=== PATIENT | male | born 1955 | race Caucasian/White ===

== ENCOUNTER 2017-12-16 07:44 | Inpatient (IN) | payer OTHER ==
[~2017-12-16] VITALS: Ht 182.9 cm; Wt 97.5 kg
--- NOTE | 2017-12-16 08:17 | ED UPPER/LOWER EXTREMITY COMPL ---
See Addendum History of Present Illness General Chief Complaint: Lower Extremity Problems Stated Complaint: SIB DR. POWER FOR SURGERY Source: patient, PCP Exam Limitations: no limitations Vital Signs & Intake/Output Vital Signs & Intake/Output Vital Signs Date Time Temp Pulse Resp B/P B/P Pulse O2 O2 Flow FiO2 Mean Ox Delivery Rate 12/16 0748 99.8 73 15 120/73 94 Room Air Room Air Allergies Coded Allergies: Penicillins (UNKNOWN 12/16/17) Triage Note: PT SENT TO ED BY DR. POWER FOR SURGERY OF INFECTED R KNEE. PT HAD FLUID EXTRACTED ON WEDNESDAY AND DR. POWER CALLED PT YESTERDAY TO TELL HIM HIS KNEE IS INFECTED. PT REPORTS PROCEDURE IS SUPPOSED TO BE DONE AT 1300. REPORTS SOME CHILLS, LOW GRADE TEMP 99.8. Triage Nurses Notes Reviewed? yes HPI: Patient was sent in for admission for a septic joint in his right knee. Patient is to go to the operating room around 1:00. Patient states that he has an 8 out of 10 throbbing pain to his right knee. The pain increases with movement however he currently has a knee immobilizer on so that is helping a little bit. Positive fevers and chills. No nausea or vomiting. No headache. No blurry vision. The pain is constant. Past History Travel History Traveled to [place] past 21 day No Medical History Any Pertinent Medical History? none Neurological: NONE EENT: NONE Cardiovascular: NONE Respiratory: NONE Gastrointestinal: NONE Hepatic: NONE Renal: NONE Musculoskeletal: NONE Psychiatric: NONE Endocrine: NONE Blood Disorders: NONE Cancer(s): NONE Surgical History Surgical History: non-contributory Psychosocial History What is your primary language Icelandic Tobacco Use: Never used ETOH Use: denies use Illicit Drug Use: denies illicit drug use Family History Hx Contributory? No Review of Systems Review of Systems Constitutional: Reports: see HPI, chills, fever. EENTM: Reports: no symptoms. Respiratory: Reports: no symptoms. Cardiovascular: Reports: no symptoms. Gastrointestinal/Abdominal: Reports: no symptoms. Genitourinary: Reports: no symptoms. Musculoskeletal: Reports: see HPI, joint pain, joint swelling. Skin: Reports: no symptoms. Neurological/Psychological: Reports: no symptoms. Hematologic/Endocrine: Reports: no symptoms. Immunological: Reports: no symptoms. All Other Systems: Reviewed and Negative Physical Exam Physical Exam General Appearance: well developed/nourished, alert, awake, moderate distress Head: atraumatic Eyes: Bilateral: PERRL, EOMI. Ears, Nose, Throat: normal pharynx, normal ENT inspection, hearing grossly normal Neck: normal inspection, supple, full range of motion Cardiovascular/Respiratory: normal breath sounds, normal peripheral pulses, regular rate/rhythm Back: normal inspection Knee Ligaments Right: IN KNEE IMMOBILIZER Skin: intact, normal color, warm/dry Lymphatic: no anterior cervical geeta Progress Differential Diagnosis: septic arthritis Plan of Care: Orders Procedure Date/time Status Nothing by Mouth 12/16 L Active ED Holding Orders 12/17 851 Active Admit to inpatient 12/17 851 Active Vital Signs 12/17 851 Active Code Status 12/17 851 Active PARTIAL THROMBOPLASTIN TIME 12/17 815 Active PROTHROMBIN TIME 12/16 08 Active COMPREHENSIVE METABOLIC PANEL 12/16 08 Active CBC WITHOUT DIFFERENTIAL 12/16 08 Active EKG 12/16 0816 Active Current Medications Sig/Marilee Start time Last Medication Dose Stop Time Status Admin Morphine Sulfate 4 MG ONCE ONE 12/16 0900 AC (MORPHINE SULFATE) 12/16 0901 Sodium Chloride 1,000 ML ONCE ONE 12/16 0900 AC (Normal Saline 0.9%) 12/16 1539 Diagnostic Imaging: Viewed by Me: Radiology Read. Discussed w/RAD: Radiology Read. Comments: MEDICAL CONSULT HAS BEEN CALLED ID CONSULT HAS BEEN CALLED BY SURGERY Departure Departure Disposition: STILL A PATIENT Condition: Stable Clinical Impression Primary Impression: Septic joint Referrals: Kristian MCLEOD,Chase Louise (PCP/Family) Departure Forms: Customer Survey General Discharge Information Admission Note Spoke With: Elvis Power MD Documentation of Exam: Documentation of any treatments & extenuating circumstances including Concerns Regarding Discharge (functional status, medication knowledge or non-compliance, living conditions, etc.) that warrant an admission rather than observation: [OR FOR WASHOUT AND FURTHER TREATMENT, PT CONSULT,PAIN CONTROL. ABX ]
--- NOTE | 2017-12-16 08:49 | RADIOLOGY REPORT ---
EXAMINATION: XR CHEST CLINICAL INFORMATION: Preoperative. Fever. COMPARISON: None TECHNIQUE: 2 views of the chest were obtained. FINDINGS: The lungs are well-inflated and clear. Trachea is midline in position. No evidence of interstitial disease, focal consolidation, mass, pneumothorax or pleural effusion. The cardiomediastinal silhouette and pulmonary karlo have normal size and contour. Mild levocurvature of the cervicothoracic spine. No suspicious bone lesions. The examined upper abdomen is unremarkable. IMPRESSION: No acute cardiopulmonary findings.
--- NOTE | 2017-12-16 09:00 | Cons- Medical ---
Jessica Richardson MD 12/16/17 0854: General Information and HPI Consulting Request Date of Consult: 12/16/17 Requested By: Elvis Power MD Reason for Consult: Septic arthritis, right knee -needed surgical debridement, washout - need medical clerance for surgery Source of Information: patient Exam Limitations: no limitations History of Present Illness: Patient is a 62-year-old male, was here for Septic arthritis, right knee -needed surgical debridement, washout.We were called to evaluate and provide medical clerance for surgery. Patient is a 62-year-old healthy male with no significant past medical history presented with chief complaints of right-sided knee septic arthritis. 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 On Wednesday the pain got worse and he started having fever with chills, he incresed the amount of tylenol to 2tab BID. He did not go to the doctor.On this Wednesday the pain was intolerable so he called and visited Dr. Townsend. He referred him to [facility]. He did saw Dr. Power who did x-rays of the knee which showed evidence of effusion but evidence of bone fracture and told about possibility of tendon rupture. He advised for MRI of the knee. He also drained the fluid and sent for the culture to r/o infection.Yesterday he got a call from Dr. Power's office that he he does have infection of his knee fluid and needed debridement. He consider Dr. Power so he is scheduled for his knee debridement for today. At present other than the knee pain he denies for any fever, chills, chest pain, nausea, shortness of breath, erythema, rashes. Of note patient was taking [id number] baby aspirin which he stopped 2 days ago. He did have hemorrhoids which are not active at this time. He had episodes of difficulty in the breathing/which was sudden in onset? panic attacks. He was diagnosed as having mild obstructive lung disease in 2001. He denies that any smoking, cocaine and marijuana use. At baseline he walks 3-4 miles on the ground and go up and down the stairs without any difficulty. Personal history -he lives with the family, at baseline he walks 3-4 miles on the ground and go up and down the stairs without any difficulty. He denies that any smoking, cocaine and marijuana use. He does drink a couple of glasses of wine a month. Allergies -penicillin -he does not know which kind of drug reaction he had in the childhood. Medicine - Sa palmetto,multivitamin, baby aspirin 81 mg daily. Surgical history -he did not have any major surgery to in October 2016 he had a skin biopsy which was negative for any malignancy Family history -father had history of skin cancer/melanoma, mother had history of diabetes, coronary artery disease, CABGs and chronic smoking PCP - Allergies/Medications Allergies: Coded Allergies: Penicillins (UNKNOWN 12/16/17) Home Med List: Aspirin (Aspirin*) 81 MG TAB.CHEW 1 TAB PO DAILY HEART HEALTH (Reported) Multiple Vitamin (Multivitamins) 1 EACH TABLET 1 TAB PO DAILY SUPPLEMENT ( Reported) Review of Systems Review of Systems Constitutional: Reports: no symptoms. Musculoskeletal: Reports: joint pain, joint swelling, muscle pain. Past History Travel History Traveled to [place] past 21 day No Medical History Neurological: NONE EENT: NONE Cardiovascular: NONE Respiratory: NONE Gastrointestinal: NONE Hepatic: NONE Renal: NONE Musculoskeletal: NONE Psychiatric: NONE Endocrine: NONE Blood Disorders: NONE Cancer(s): NONE Surgical History Surgical History: none Psychosocial History ETOH Use: denies use Illicit Drug Use: denies illicit drug use Exam & Diagnostic Data Last 24 Hrs of Vital Signs/I&O Vital Signs Date Time Temp Pulse Resp B/P B/P Pulse O2 O2 Flow FiO2 Mean Ox Delivery Rate 12/16 0748 99.8 73 15 120/73 94 Room Air Room Air Intake & Output 12/16 1600 12/16 0800 12/16 0000 Intake Total 0 Output Total 0 Balance 0 Intake, Oral 0 Output, Urine 0 Patient 97.522 kg Weight Weight Reported by Patient Measurement Method Physical Exam General Appearance: well developed/nourished, no apparent distress, alert, awake , comfortable Ears, Nose, Throat: normal pharynx Neck: normal inspection, supple Respiratory: normal breath sounds, chest non-tender, no respiratory distress, quiet respiration, lungs clear Cardiovascular: regular rate/rhythm Peripheral Pulses: 4+ radial (R), 4+ radial (L), 4+ tibialis posterior (R), 4+ tibialis posterior ( L), 4+ dorsalis pedis (R), 4+ dorsalis pedis (L) Extremities: right knee joint swollen, tender, no erythema, swelling is extending to right calf till the posterior part of right ankle Last 24 Hrs of Labs/Brad: Laboratory Tests 12/17/17 0821: Anion Gap 10, Estimated GFR > 60, BUN/Creatinine Ratio 21.1, CBC w Diff NO MAN DIFF REQ, RBC 4.50 L, MCV 78.4 L, MCH 25.3 L, MCHC 32.3 L, RDW 14.2, MPV 8.8 , Gran % 68.5, Lymphocytes % 16.1 L, Monocytes % 13.1 H, Eosinophils % 1.8, Basophils % 0.5, Absolute Granulocytes 5.7, Absolute Lymphocytes 1.3, Absolute Monocytes 1.1 H, Absolute Eosinophils 0.1, Absolute Basophils 0 Assessment/Plan Assessment/Plan Patient is a 62-year-old male, was here for Septic arthritis, right knee -needed surgical debridement, washout.We were called to evaluate and provide medical clerance for surgery. Vital signs -temperature 99.8, pulse rate 70, respiratory rate 15, blood pressure 120/73, SPO2 94% on room air. EKG showed heart rate 71, normal sinus rhythm, NJ interval 144, QTc 422, No any acute ST-T wave changes. Blood workup showed -WBC 11.4, hemoglobin 12.9, hematocrit 39.8, MCV 77.1, platelet count 356, granulocyte 77, monocytes 12.4, eosinophils 0.8, no Annika, PT/INR -15.1/1.38, APTT 31, sodium 141, potassium 4.8, chloride 102, anion gap 11, carbon dioxide 29, glucose 131, calcium 9.3, AST 25, ALT 54, alkaline phosphatase 82, albumin 3.4, BUN 25, creatinine 0.9. Chest x-ray -no acute cardiopulmonary changes Synovitic fluid was growing staph aureus which was sensitive to oxacillin, Augmentin, cefazolin. Assessment and plan - Patient is a 62-year-old healthy male with no significant past medical history presented with chief complaints of right-sided knee septic arthritis, secondary to trauma. Spinal fluid was growing MSSA. currently he denies for any fever, chills, chest pain. He still have right-sided knee pain, 10/10. On examination the right knee is swollen, tender, swelling extending to right-sided calf and heel. All pulses are palpable. He denies for any history of hypertension, hyperlipidemia, diabetes, hypothyroidism, AK, CHF, CVA, history of prior surgery. He does use aspirin which he stopped 2 days ago.He is undergoing intermediate risk, noncardiac surgery. His risk of getting major cardiac event is only 0.4%. Plan * Patient is undergoing intermediate risk noncardiac surgery. His risk of getting major cardiac event is only 0.4%(RCRI - 0.4%).We think he can undergo the surgery, at 0.4% risk of getting cardiac event. * Patient is allergic to penicillin, and he is unaware of kind of reaction he had.He is growing MSSA in the synovitic fluid. We advised to consider vancomycin/ID consult. * Patient was also having swelling in the calf, it seems in continuation with the swelling in knee, but DVT cannot be ruled out. We would advise to consider color doppler if needed. Discussed with Dr Turcios, these are provisional, please wait for final rcms. Problem List: 1. Septic joint Copies To: Kristian MCLEOD,Chase Galvan. Consult Acknowledgment - Thank you for your consult request. Deepak MCLEOD,Dinah 12/16/17 1134: Assessment/Plan Consult Acknowledgment - Thank you for your consult request. Attending MD Review Statement Attending Statement Attending Statement: examined this patient, discuss w/resident/PA/GRAPHICS EDIT TECHNICIAN, agreed w/resident/PA/GRAPHICS EDIT TECHNICIAN, reviewed EMR data (avail), discussed with nursing, reviewed images, amended to note Attending Assessment/Plan: 62-year-old male with no significant past medical history who is admitted under orthopedic service for right knee septic arthritis. 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 About a week ago he sustained some injury during that position. He started taking some Tylenol but the pain got worse. He finally saw Dr. Power 4 days ago who had performed arthrocentesis. He was also prescribed ibuprofen at that time but no antibiotics. Arthrocentesis results show that he is growing staph aureus MSSA in the right knee. Patient is admitted for right septic knee washout. Medical consult was obtained for medical clearance. Patient has no medical history and he does not take any prescription medications. He does take a baby aspirin which she has not taken over the last 2 days. His right knee is swollen and warm. No significant erythema. Right cough is also swollen. Patient is complaining of significant amount of pain and currently he is awaiting an immobilizer. She is otherwise pretty active person. He is able to go couple of flight of stairs without any chest pain or shortness of breath. His RCRI risk scoring is also low which is 0.4% risk of major cardiac events. Vital Signs Date Time Temp Pulse Resp B/P B/P Pulse O2 O2 Flow FiO2 Mean Ox Delivery Rate 12/16 1031 98.1 67 16 129/60 99 Room Air 12/16 0748 99.8 73 15 120/73 94 Room Air Room Air on exam; aox3, nad. cv; s1,s2, rrr resp; clear abd; soft, nt, bs+ ext; + edema right lower ext. right knee is also swollen. Laboratory Tests 12/16 0900 Chemistry Sodium (137 - 145 mmol/L) 141 Potassium (3.5 - 5.1 mmol/L) 4.8 Chloride (98 - 107 mmol/L) 102 Carbon Dioxide (22 - 30 mmol/L) 29 Anion Gap (5 - 16) 11 BUN (9 - 20 mg/dL) 25 H Creatinine (0.7 - 1.2 mg/dL) 0.9 Estimated GFR (>60 ml/min) > 60 BUN/Creatinine Ratio (7 - 25 %) 27.8 H Glucose (65 - 99 mg/dL) 131 H Calcium (8.4 - 10.2 mg/dL) 9.3 Total Bilirubin (0.2 - 1.3 mg/dL) 1.0 AST (17 - 59 U/L) 25 ALT (21 - 72 U/L) 54 Alkaline Phosphatase (< 127 U/L) 82 Total Protein (6.3 - 8.2 g/dL) 6.8 Albumin (3.5 - 5.0 g/dL) 3.4 L Globulin (1.9 - 4.2 gm/dL) 3.4 Albumin/Globulin Ratio (1.1 - 2.2 %) 1.0 L Coagulation PT (9.4 - 12.5 SEC) 15.1 H INR (0.90 - 1.17) 1.38 H APTT (25 - 37 SEC) 31 Hematology CBC w Diff NO MAN DIFF REQ WBC (4.8 - 10.8 /CUMM) 11.4 H RBC (4.70 - 6.10 /CUMM) 5.17 Hgb (14.0 - 18.0 G/DL) 12.9 L Hct (42 - 52 %) 39.8 L MCV (80.0 - 94.0 FL) 77.1 L MCH (27.0 - 31.0 PG) 25.0 L MCHC (33.0 - 37.0 G/DL) 32.5 L RDW (11.5 - 14.5 %) 13.5 Plt Count (130 - 400 /CUMM) 356 MPV (7.4 - 10.4 FL) 8.5 Gran % (42.2 - 75.2 %) 77.0 H Lymphocytes % (20.5 - 51.1 %) 9.0 L Monocytes % (1.7 - 9.3 %) 12.4 H Eosinophils % (0 - 5 %) 0.8 Basophils % (0.0 - 2.0 %) 0.8 Absolute Granulocytes (1.4 - 6.5 /CUMM) 8.8 H Absolute Lymphocytes (1.2 - 3.4 /CUMM) 1.0 L Absolute Monocytes (0.10 - 0.60 /CUMM) 1.4 H Absolute Eosinophils (0.0 - 0.7 /CUMM) 0.1 Absolute Basophils (0.0 - 0.2 /CUMM) 0.1 CXR: IMPRESSION: No acute cardiopulmonary findings. EKG>> NSR, no acute changes. Assessment and recommendations: 62-year-old male with no significant past history who was admitted under orthopedic service for right knee septic arthritis needing washout. Would recommend right lower extremity venous Doppler ultrasound to rule out DVT. Infectious disease has been consulted for the choice of antibiotics. If ultrasound is negative for DVT then patient's RCRI risk scoring index calculates to 0.4% risk of major cardiac events. No further testing needed. Post op mx will be per orthopedic. Thank you will follow.
[2017-12-16 09:16] LABS: ABSOLUTE BASOPHIL COUNT 0.1 /CUMM (0.0-0.2); ABSOLUTE EOSINOPHIL COUNT 0.1 /CUMM (0.0-0.7); ABSOLUTE GRANULOCYTE CT 8.8 /CUMM (1.4-6.5); ABSOLUTE MONOCYTE COUNT 1.4 /CUMM (0.10-0.60); BASOPHIL % 0.8 % (0.0-2.0); EOSINOPHIL % 0.8 % (0-5); HEMATOCRIT 39.8 % (42-52); MEAN CORPUSCULAR HGB CONC 32.5 G/DL (33.0-37.0); MEAN CORPUSCULAR VOLUME 77.1 FL (80.0-94.0); MEAN PLATELET VOLUME 8.5 FL (7.4-10.4); PLATELET COUNT 356 /CUMM (130-400); RBC DISTRIBUTION WIDTH 13.5 % (11.5-14.5); RED BLOOD CELL CT 5.17 /CUMM (4.70-6.10); WHITE BLOOD CELL COUNT 11.4 /CUMM (4.8-10.8)
[2017-12-16 09:36] LABS: PT 15.1 SEC (9.4-12.5); PTT 31 SEC (25-37)
--- NOTE | 2017-12-16 10:25 | History & Physical Pre-Op ---
Onofre,Debbie 12/16/17 1021: General Information and HPI MD Statement: I have seen and personally examined NADIRA ALTAMIRANO and documented this H&P. The patient is a 62 year old M who presented with a patient stated chief complaint of [right knee pain related to septic joint]. Source of Information: patient Exam Limitations: no limitations History of Present Illness: Nadira is a 62 year old male who presents to the ER under the direction of Dr. Power for preoperative evaluation, he will be going to the OR today for an arthroscopic washout of his septic right knee. Mr. Altamirano presented to Dr. Power's office on Wednesday of this week with complaints of pain to his right knee that was preceded by a fall from a kneeling position. Upon evaluation in the office the patient had a painful effusion concerning for a possible hemearthosis. However, a joint aspiration performed in the office by Dr. Power was significant for cloudy fluid. Cultures were sent from the fluid and are positive for a staph aureus infection. A hospitalist consult was obtained as well as an infectious disease consult. Patient has been seen by Dr. Ferrera, upon exam of his calf, Dr. Ferrera expressed concern regarding tenderness and swelling. A stat ultrasound has been ordered to r/o DVT. The patient denies any signficant medical history. He denies any pertinent surgical history, this is a southern ute knee. Allergies/Medications Allergies: Coded Allergies: Penicillins (UNKNOWN 12/16/17) Past History Medical History Neurological: NONE EENT: NONE Cardiovascular: NONE Respiratory: NONE Gastrointestinal: NONE Hepatic: NONE Renal: NONE Musculoskeletal: NONE Psychiatric: NONE Endocrine: NONE Blood Disorders: NONE Cancer(s): NONE Surgical History Pertinent Surgical History: non-contributory Past Family/Social History Psychosocial History ETOH Use: denies use Illicit Drug Use: denies illicit drug use Review of Systems Review of Systems Constitutional: Reports: chills, malaise. EENTM: Reports: no symptoms. Cardiovascular: Reports: no symptoms. Respiratory: Reports: no symptoms. GI: Reports: no symptoms. Genitourinary: Reports: no symptoms. Musculoskeletal: Reports: see HPI, joint pain, joint swelling. Skin: Reports: no symptoms. Neurological/Psychological: Reports: no symptoms. Hematologic/Endocrine: Reports: no symptoms. Immunologic/Allergic: Reports: no symptoms. Exam & Diagnostic Data Last 24 Hrs of Vital Signs/I&O Vital Signs Date Time Temp Pulse Resp B/P B/P Pulse O2 O2 Flow FiO2 Mean Ox Delivery Rate 12/16 1031 98.1 67 16 129/60 99 Room Air 12/16 0748 99.8 73 15 120/73 94 Room Air Room Air Intake & Output 12/16 1600 12/16 0800 12/16 0000 Intake Total 0 Output Total 0 Balance 0 Intake, Oral 0 Output, Urine 0 Patient 215 lb Weight Weight Reported by Patient Measurement Method Physical Exam: General: Alert and oriented x3, no acute distress Cardiac: RRR, s1s2 Pulm: CTA bilaterally Abd: Soft, non-tender, non-distended Extremities: Moves all extremities, neurovascularly intact. Right knee warm, swelling. Right calf tender, tight with palpation. Assessment/Plan Assessment/Plan: This is a 62 year old male, hospital day 0, presenting with a septic knee. Preoperative workup to include routine labs and ekg, all of which have been reviewed. Chest xray, routine, reviewed IV hydration, Normal Saline at 75/hour Hospitalist consult, Dr. Ferrera has seen patient Infectious disease, Dr. Leroy will see patient preoperatively Stat ultrasound or rle to r/o dvt preoperatively Will admit to surgery, Dr. Power Will consider picc line placement and administration of iv antibiotics under the guidance of Elvis Lubin MD 12/16/17 1720: General Information and HPI Allergies/Medications Home Med list Aspirin (Aspirin*) 81 MG TAB.CHEW 1 TAB PO DAILY HEART HEALTH (Reported) Multiple Vitamin (Multivitamins) 1 EACH TABLET 1 TAB PO DAILY SUPPLEMENT ( Reported) Assessment/Plan As Ranked By This Provider Problem List: 1. Septic joint Attending MD Review Statement Attending Statement Attending MD Statement: examined this patient, discuss w/resident/PA/CORE MICROARCHITECT, agreed w/resident/PA/CORE MICROARCHITECT
--- NOTE | 2017-12-16 11:43 | ULTRASOUND REPORT ---
EXAMINATION: US TRIPLEX LOWER EXTREMITY, RIGHT CLINICAL INFORMATION: Right lower extremity pain and swelling. COMPARISON: None TECHNIQUE: Color-flow triplex imaging with spectral analysis and compression Doppler were performed on the lower extremity. FINDINGS: Respiratory variation, normal compression and augmented flow are noted throughout the lower extremity. The visualized common femoral vein, proximal greater saphenous vein, superficial femoral vein, profunda femoral vein, popliteal vein and midcalf peroneal and posterior tibial venous segments show no evidence of deep venous thrombosis. A right popliteal fossa fluid collection, possibly a Peña's cyst, is seen measuring 4.5 x 1.4 x 3.6 cm. IMPRESSION: 1. No ultrasound evidence of deep venous thrombosis involving the right lower extremity. 2. A right popliteal fossa fluid collection is seen, as detailed.
--- NOTE | 2017-12-16 11:52 | Cons- Infect Disease ---
General Information and HPI Consulting Request Date of Consult: 12/16/17 Requested By: Elvis Power M.D. 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 Laboratory data revealed a white blood cell count of 11,000, BUN/creatinine 25 and 0.9, with normal liver enzymes, INR 1.38/ PTT 31. Chest x -ray was negative. At present he reports significant pain in the knee. He has noted chills over the last several days but has had no documented fevers. Allergies/Medications Allergies: Coded Allergies: Penicillins (UNKNOWN 12/16/17) Past History Travel History Traveled to [place] past 21 day No Medical History Neurological: NONE EENT: NONE Cardiovascular: NONE Respiratory: NONE Gastrointestinal: NONE Hepatic: NONE Renal: NONE Musculoskeletal: NONE Psychiatric: NONE Endocrine: NONE Blood Disorders: NONE Cancer(s): NONE Surgical History Surgical History: non-contributory Psychosocial History ETOH Use: denies use Illicit Drug Use: denies illicit drug use Review of Systems Review of Systems All Other Systems: Reviewed and Negative Exam & Diagnostic Data Last 24 Hrs of Vital Signs/I&O Vital Signs Date Time Temp Pulse Resp B/P B/P Pulse O2 O2 Flow FiO2 Mean Ox Delivery Rate 12/16 1031 98.1 67 16 129/60 99 Room Air 12/16 0748 99.8 73 15 120/73 94 Room Air Room Air Intake & Output 12/16 1600 12/16 0800 12/16 0000 Intake Total 0 Output Total 0 Balance 0 Intake, Oral 0 Output, Urine 0 Patient 215 lb Weight Weight Reported by Patient Measurement Method Physical Exam Other Physical Findings: Afebrile. He is awake and alert in no acute distress. Skin reveals no rash. HEENT negative. Neck is supple with no adenopathy. Lungs are clear. Heart regular rhythm with no murmur. Abdomen is soft, nontender with positive bowel sounds. Back no CVA tenderness. Extremities right knee swelling and warmth, with no erythema, tender to palpation with decreased range of motion; right lower extremity edema, with no cyanosis or clubbing. Neuro is without focality. Last 24 Hours of Lab Results: Laboratory Tests 12/16 0900 Chemistry Sodium (137 - 145 mmol/L) 141 Potassium (3.5 - 5.1 mmol/L) 4.8 Chloride (98 - 107 mmol/L) 102 Carbon Dioxide (22 - 30 mmol/L) 29 Anion Gap (5 - 16) 11 BUN (9 - 20 mg/dL) 25 H Creatinine (0.7 - 1.2 mg/dL) 0.9 Estimated GFR (>60 ml/min) > 60 BUN/Creatinine Ratio (7 - 25 %) 27.8 H Glucose (65 - 99 mg/dL) 131 H Calcium (8.4 - 10.2 mg/dL) 9.3 Total Bilirubin (0.2 - 1.3 mg/dL) 1.0 AST (17 - 59 U/L) 25 ALT (21 - 72 U/L) 54 Alkaline Phosphatase (< 127 U/L) 82 Total Protein (6.3 - 8.2 g/dL) 6.8 Albumin (3.5 - 5.0 g/dL) 3.4 L Globulin (1.9 - 4.2 gm/dL) 3.4 Albumin/Globulin Ratio (1.1 - 2.2 %) 1.0 L Coagulation PT (9.4 - 12.5 SEC) 15.1 H INR (0.90 - 1.17) 1.38 H APTT (25 - 37 SEC) 31 Hematology CBC w Diff NO MAN DIFF REQ WBC (4.8 - 10.8 /CUMM) 11.4 H RBC (4.70 - 6.10 /CUMM) 5.17 Hgb (14.0 - 18.0 G/DL) 12.9 L Hct (42 - 52 %) 39.8 L MCV (80.0 - 94.0 FL) 77.1 L MCH (27.0 - 31.0 PG) 25.0 L MCHC (33.0 - 37.0 G/DL) 32.5 L RDW (11.5 - 14.5 %) 13.5 Plt Count (130 - 400 /CUMM) 356 MPV (7.4 - 10.4 FL) 8.5 Gran % (42.2 - 75.2 %) 77.0 H Lymphocytes % (20.5 - 51.1 %) 9.0 L Monocytes % (1.7 - 9.3 %) 12.4 H Eosinophils % (0 - 5 %) 0.8 Basophils % (0.0 - 2.0 %) 0.8 Absolute Granulocytes (1.4 - 6.5 /CUMM) 8.8 H Absolute Lymphocytes (1.2 - 3.4 /CUMM) 1.0 L Absolute Monocytes (0.10 - 0.60 /CUMM) 1.4 H Absolute Eosinophils (0.0 - 0.7 /CUMM) 0.1 Absolute Basophils (0.0 - 0.2 /CUMM) 0.1 Last 24 Hours of Brad Results: Right knee synovial fluid culture December 13 positive for Staph aureus sensitive to Oxacillin Diagnostic Data Recent Imaging Findings: Chest x-ray December 16 negative Assessment/Plan Assessment/Plan Impression: This is a 62-year-old man with no significant past medical history, status post an injury to his right knee 10 days prior to admission while leaning on the knees at work, with the development of increasing pain and swelling of the knee, status post arthrocentesis 3 days prior to admission revealing over 127,000 white blood cells with the gram stain revealing packed white blood cells and rare gram-positive cocci and with the culture positive for Staph aureus, admitted today for arthroscopic drainage of the knee. His clinical picture is consistent with a septic arthritis of the right knee. This is most likely related to the trauma he sustained 10 days prior to admission at work, though one might question if this began as a bursitis ( suprapatellar) with extension into the joint. He is scheduled for arthroscopic drainage of the knee later today. His Penicillin allergy is remote, with no details available, and it would be reasonable to treat him with cephalosporins. Suggestion: 1. Obtain blood cultures 2 2. Await arthroscopic drainage in the OR later today 3. Begin Cefazolin 2 g IV every 8 hours Consult Acknowledgment - Thank you for your consult request.
[2017-12-16] MEDS ORDERED: MULTIVITAMINS1 EAC9 PO (12:49)
[2017-12-16] MEDS ORDERED: ASPIRIN81 M4 PO (12:50)
--- NOTE | 2017-12-16 17:41 | Operative Report ---
Operative/Inv Procedure Report Surgery Date: 12/16/17 Name of Procedure: Arthroscopic washout right knee. Pre-Operative Diagnosis: Right knee septic arthritis. Post-Operative Diagnosis: Same. Estimated Blood Loss: scant Surgeon/Document Clerk: Elvis Power MD Anesthesia: laryngeal mask airway Monitors: EKG/BP/O2Sat IV Fluids: Lactated Ringer's. Implants: None. Urine Output: None. Drains: Medium-size NADER drain 1. Specimens: Synovial fluid sent to the microbiology lab for Gram stain and culture and sensitivity. Microbiology: Synovial fluid sent to the microbiology lab for Gram stain and culture and sensitivity. Tourniquet: 49 minutes at 300 mmHg. Complications: None known. Condition: Stable. Operative Indication: The patient is a 62-year-old male who developed right knee pain and swelling now roughly 10 days ago. He initially believed that the onset of his knee symptoms were related to him having lost his balance while he was kneeling causing him to fall backwards onto his buttocks and then over to his side. He thought that he had hyperflexed the knee. He felt "something" in the region of the distal thigh when this occurred. The patient initially improved but subsequently developed pain and swelling in the knee that evening. He did not recall having experienced any erythema. At the time of his initial office visit with me he denied any history of fevers or chills or other constitutional symptoms. More recently when I did discuss this with him again earlier today he does recall that he did experience one episode of chills on the day that his symptoms began. The patient saw me earlier this week. My impression based upon the patient's related mechanism of injury and onset of symptoms in the knee without any type of constitutional symptoms was that he had potentially sustained a partial tear of the quadriceps tendon. I did recommend given his exceptionally large joint effusion with discomfort seemingly related to the distention of the joint capsule that we aspirate the joint trying to evacuate presumed hematoma should this have been in fact a partial quadriceps disruption. This aspiration was performed under ultrasonographic guidance. A distinct defect in the quadriceps tendon was not identified. A very large joint effusion was identified. This joint effusion was aspirated with return of very thin cloudy not specifically purulent appearing synovial fluid. The fluid had the general appearance of an inflammatory arthritis or crystalline arthropathy. The fluid was sent to the lab for routine analysis thinking that this would be an inflammatory or crystalline arthropathy of the knee. The synovial fluid returned positive for a markedly elevated synovial white blood cell count of nearly 128,000. This was with 95% polys. Gram stain and culture and sensitivity did ultimately start off with gram-positive cocci which proved to be staph aureus. I did contact the patient yesterday to discuss the findings of his synovial fluid analysis and to inform him that this did unexpectedly seem to be a septic arthritis of the knee for reasons that I could not explain. I did indicate to the patient that the indicated treatment would be an arthroscopic washout of the knee followed by IV and possibly oral antibiotics for an extended period of time. We discussed the timing and mechanism for how to accomplish this and after discussion we did decide to admit him to the emergency room this morning so that we could take him to the operating room this early afternoon for an arthroscopic washout of the knee. All of the patient's questions were answered at length. He did wish to move forward with arthroscopic washout of the knee as recommended and surgical consent was obtained. Operative/Procedure Note Note: The patient was brought to the operating room and placed on the operative table in supine position. General anesthesia via LMA was induced by the anesthesia team. We held off on administration of antibiotics until additional synovial fluid could be obtained from the knee to be sent to the microbiology lab for analysis. All bony prominences well-padded. We also applied a well-padded tourniquet to the proximal portion of the right side. We secured the right side to a well padded thigh you attachment to the OR table. The contralateral left lower cavity well leg was supported in a padded leg support. A bump was placed under the right buttocks to help partially internally rotate the right lower extremity. The bed was elevated and the foot was dropped. The right lower extremity was then prepped and draped in the usual sterile fashion. Standard planned anterolateral and anteromedial arthroscopic portals were marked on the skin. The extremity was then exsanguinated and the pneumatic tourniquet was inflated to a pressure of 300 mmHg. A standard anterolateral arthroscopic viewing portal was created and the arthroscope was introduced into the joint. With initial placement of the trocar we did evacuate a large amount of cloudy synovial fluid which this time had a closer appearance to a true purulent fluid within the knee. This fluid was sent to the microbiology lab for Gram stain and culture and sensitivity. Diagnostic arthroscopy of the joint showed a marked septic effusion and marked hypertrophic synovitis throughout the knee. The patellofemoral articulation showed grade 4 cartilage loss along the median ridge and lateral patellar facet. The medial patellar facet showed mild chondral changes. The trochlea was in relatively good condition. No loose bodies within the gutters to either side of the knee but again there was hypertrophic synovitis. The medial tibiofemoral compartment showed grade 1 cartilage changes of the mediofemoral condyle and the medial tibial plateau. The medial meniscus was intact. The intercondylar notch showed significant synovitis over and about the anterior cruciate ligament. After cleaning this up subsequently later in the case the ACL was found to be intact. The lateral tibiofemoral compartment was entered and showed intact lateral meniscus and grade 1 cartilage changes of the lateral femoral condyle and lateral tibial plateau. Of note it took about 5 minutes of simply washing out the knee before visualization of the knee arthroscopically could be performed. Once we had visualization of the knee we performed an arthroscopic lavage and debridement of the knee. An aggressive motorized shaver was used to debride inflamed synovial tissue throughout the knee as best as possible. The shaver was also used to debride retropatellar fat pad. In the end the knee was irrigated with 15 L of saline for the washout. Once we felt that we had achieved a reasonable washout of the knee we placed a medium-sized J-P drain by advancing the trocar for the J-P drain up through the medial arthroscopic portal and directed that up and out through the anterior distal lateral thigh. The trocar was cut off of the suction drain tubing. The drain was cut shorter and positioned under direct visualization arthroscopically down into the intercondylar region of the knee. The knee was further irrigated and then evacuated of as much saline and synovial fluid as possible. The arthroscopic instrumentation was removed. The arthroscopic portal wounds were repaired using 3-0 Prolene placed in interrupted simple fashion. The drain exiting the distal lateral thigh was secured by suturing it with a 0 Prolene suture wrapped around the tubing. The wounds were all washed and dried. Xeroform gauze nonadherent dressing was wrapped around the drain exit site and additional Xeroform gauze dressing was placed over the anteromedial and anterolateral arthroscopic portal wounds. A drain sponge was placed about the drain. The wounds were covered with multiple fluffed gauze dressings followed by abdominal pads. The extremity was then wrapped with Azam bandages from the toes distally ultimately to the upper thigh proximally in order to hold the dressings in place and to provide some postoperative compression to the knee as well as to the right lower extremity in general hopefully to minimize risk of blood clot formation propagation. Once the Azam bandages were wrapped about the knee the tourniquet was deflated. Once the tourniquet was deflated a dose of Ancef was given to start his postoperative antibiotic treatment. The leg of the bed was elevated. The patient's legs were taken down from the well leg you for the left leg and from the thigh you for the right leg and placed in the supine extended position on the bed. Right lower extremity was then placed into a long-leg knee immobilizer secured in place to maintain the knee in full extension. The patient was awakened from general anesthesia. He was transferred to the stretcher and then brought to the recovery room stable condition having tolerated the procedure well. Findings: 1) Marked septic effusion. 2) Marked hypertrophic synovitis. 3) Grade 4 cartilage loss median ridge and lateral patellar facet of patella. 4) Grade 1 cartilage changes elsewhere in the knee. 5) ACL intact. 6) Medial and lateral menisci intact. Discharge Disposition: PACU
--- NOTE | 2017-12-16 17:44 | Admission Core Measures ---
Acute Coronary Syndrome (CM) ACS Core Measures Acute Coronary Syndrome Diagnosis No Congestive Heart Failure (NEW) CHF Core Measures Congestive Heart Failure Diagnosis No Cerebrovascular Accident (NEW) CVA Core Measures CVA/TIA Diagnosis No Venous Thromboembolism VTE Core Rosalba (View Protocol) VTE Risk Factors Surgery No Mechanical VTE Prophylaxis d/t N/A MechProphylax Ordered No VTE Pharm Prophylaxis d/t NA PharmProphylax ordered Problem List As ranked by this Provider includes Assessment & Plan 1. Septic joint HOME MEDS Home Med List Aspirin (Aspirin*) 81 MG TAB.CHEW 1 TAB PO DAILY HEART HEALTH (Reported) Multiple Vitamin (Multivitamins) 1 EACH TABLET 1 TAB PO DAILY SUPPLEMENT ( Reported)
[2017-12-16 19:00] VITALS: BP 150/70
--- NOTE | 2017-12-16 19:41 | PN- Orthopedic ---
See Addendum Subjective Subjective: POST-OP CHECK Pt in bed, very tired. Pain controlled. No Nausea, CP/SOB, RUSHING. denies fevers but said he has had a few chills. Denies paresthias. Objective Vital Signs and I&Os Vital Signs Date Time Temp Pulse Resp B/P B/P Pulse O2 O2 Flow FiO2 Mean Ox Delivery Rate 12/16 1241 98.4 69 16 136/69 100 Room Air 12/16 1031 98.1 67 16 129/60 99 Room Air 12/16 0748 99.8 73 15 120/73 94 Room Air Room Air Intake & Output 12/16 1600 12/16 0800 12/16 0000 12/15 1600 12/15 0800 12/15 0000 Intake Total 0 Output Total 0 Balance 0 Intake, Oral 0 Output, Urine 0 Patient 215 lb Weight Weight Reported by Patient Measurement Method Physical Exam: gen- NAD resp- clear bilaterally cardio- RRR abd- ND, soft, NT ext- right leg wrapped in bob with knee immobilizer on. clean and dry. drain in place which was recently emptied- minimal sanguineous drainage. 2+PT pulse bilaterally. distal sensory and motor function intact bilaterally Assessment/Plan Assessment/Plan 62yo M SP R knee arthroscopic washout POD0. stable IV ABX- ancef Q8h,appreciate ID input. Will likely have PICC line placed tomorrow, Scarlett aware. Knee immobilizer for comfort PT- WBAT Drain in right knee to stay in for now, likely through weekend DVT PPX- SQ heparin and ALPS Reg diet Pain management Core Measures Venous Thromboembolism VTE Risk Factors Surgery No Mechanical VTE Prophylaxis d/t N/A MechProphylax Ordered No VTE Pharm Prophylaxis d/t NA PharmProphylax ordered
[2017-12-16 21:00] VITALS: BP 146/72
[2017-12-16 23:31] VITALS: BP 126/64
[2017-12-17] VITALS (7 sets, daily range): BP systolic 118–130; BP diastolic 60–90
--- NOTE | 2017-12-17 08:19 | PN- Medicine Consult ---
Debra MCLEOD,Jessica 12/17/17 0819: Assessment/PlanMedical Consult Assessment/Plan Assessment: Patient is a 62-year-old male, was here for Septic arthritis secondary to trauma. Outpatient synovial fluid analysis was showing WBC count of 1 28,000, 95% granulocyte and Gram stain was positive for gram-positive cocci, spinal fluid culture was growing MSSA.He underwent arthroscopic washout of right knee on 12/16/2017, started on injection cefazolin 2 g IV 8 hourly. A large amount of cloudy synovial fluid was evacuated and sent for Gram stain and culture sensitivity. Diagnostic arthroscopy showed marked septic effusion, hypertrophic synovitis throughout the knee, grade 4 cartilage loss along the medial ridge and lateral patellar facet. Arthroscopic debridement was done. Patient currently has drain with, bloody serous secretion, and placed into a long leg knee immobilizer. Gram stain, body fluid culture, and blood counts are pending. Patient was feeling much comfortable. His pain score was between 1-2. He wanted to move around. Vital signs -afebrile, pulse 65, respiratory rate 20, blood pressure 120/72, SPO2 95% on room air. Physical exam -alert 3, quite cheerful, right lower leg under long leg knee immobilizer, drain was having blood-tinged serous fluid, right leg pulses were palpable both posterior tibial and dorsalis pedis, heart S1-S2 normal, chest bilateral clear. Blood count -hemoglobin 11.4, hematocrit 35.8, WBC 8.3, platelet count 329, sodium 138, potassium 4.4, chloride 99, anion gap 10, BUN 19, creatinine 0.9. Blood cultures -were not sent Synovial fluid culture -is growing gram-positive cocci Gram stain -gram-positive cocci Plan: * Patient is stable from medical point of view * Continue antibiotic as per ID. * Advised for early mobilization and continue same pain management. * Further management per primary surgical team. Discussed with Dinah Sotelo MD. we will sign off. Please call with any questions. Problem List: 1. Septic arthritis Subjective Subjective: Patient denies for any active complain and feeling much better. Objective Last 24 Hrs of Vital Signs/I&O Vital Signs Date Time Temp Pulse Resp B/P B/P Pulse O2 O2 Flow FiO2 Mean Ox Delivery Rate 12/17 0745 98.3 65 20 120/72 95 Room Air 12/17 0344 98.5 54 20 122/72 94 Room Air 12/17 0330 98.5 54 20 122/72 94 Room Air 12/16 2331 99.1 61 20 126/64 96 Room Air 12/16 2324 99.1 12/16 2225 100.3 12/16 2100 100.3 64 20 146/72 97 Room Air 12/16 1900 98.6 72 20 150/70 96 Room Air 12/16 1241 98.4 69 16 136/69 100 Room Air 12/16 1031 98.1 67 16 129/60 99 Room Air Intake & Output 12/17 1600 12/17 0800 12/17 0000 Intake Total 900 425 Output Total 1180 280 Balance -280 145 Intake, IV 600 225 Intake, Oral 300 200 Output, 30 80 Drainage Output, Urine 1150 200 Patient 97.522 kg Weight Weight Reported by Patient Measurement Method Current Medications: Current Medications Sig/Marilee Start time Last Medication Dose Route Stop Time Status Admin Acetaminophen 650 MG Q4P PRN 12/16 1730 AC 12/17 PO 0627 Cefazolin Sodium 2 GM Q8H 12/17 0400 AC 12/17 N/A 1 UNIT IV 1130 Cefazolin Sodium 2 GM IQ8 12/16 1600 DC 12/16 N/A 1 UNIT IV 2024 Dextrose/Sodium 1,000 ML .[id number] 12/16 173 DC 12/17 Chloride IV 0628 Docusate Sodium 100 MG BID 12/16 2200 AC 12/17 PO 0949 Heparin Sodium 5,000 UNIT Q8 12/16 2200 AC 12/17 (Porcine) SC 1500 Morphine Sulfate 2 MG Q2P PRN 12/16 1730 AC 12/16 IV 1849 Ondansetron HCl 4 MG Q6P PRN 12/16 1730 AC IV Oxycodone/ 1 TAB Q4P PRN 12/16 1730 AC 12/17 Acetaminophen PO 0948 Oxycodone/ 2 TAB Q4P PRN 12/16 1730 AC 12/17 Acetaminophen PO 1400 Polyethylene Glycol 17 GM DAILY NEEDED PRN 12/16 1730 AC PO Promethazine HCl 12.5 MG Q6P PRN 12/16 1730 AC IV 12/23 1529 Sodium Chloride 1,000 ML ONCE ONE 12/16 0900 DC 12/16 IV 12/16 1539 0925 Results Last 24 Hrs Lab/Brad Results: Laboratory Tests 12/17/17 0821: Anion Gap 10, Estimated GFR > 60, BUN/Creatinine Ratio 21.1, CBC w Diff NO MAN DIFF REQ, RBC 4.50 L, MCV 78.4 L, MCH 25.3 L, MCHC 32.3 L, RDW 14.2, MPV 8.8 , Gran % 68.5, Lymphocytes % 16.1 L, Monocytes % 13.1 H, Eosinophils % 1.8, Basophils % 0.5, Absolute Granulocytes 5.7, Absolute Lymphocytes 1.3, Absolute Monocytes 1.1 H, Absolute Eosinophils 0.1, Absolute Basophils 0 Deepak MCLEOD,[facility] 12/17/17 1343: Attending MD Review Statement Attending Sign Off Attending Cosign Statement: I have: examined this patient, reviewed [facility] EMR data, personally reviewd images, discussd w/resident/PA/CLAM BED WORKER, discussed mgmt plan w/pt, agreed w/resident/ PA/CLAM BED WORKER, amended to note. Other Findings: Patient seen and examined, feels overall better. Has AJYDEN warp around the right knee and immobilizer on rle. Vital Signs Date Time Temp Pulse Resp B/P B/P Pulse O2 O2 Flow FiO2 Mean Ox Delivery Rate 12/17 0745 98.3 65 20 120/72 95 Room Air 12/17 0344 98.5 54 20 122/72 94 Room Air 12/17 0330 98.5 54 20 122/72 94 Room Air 12/16 2331 99.1 61 20 126/64 96 Room Air 12/16 2324 99.1 12/16 2225 100.3 12/16 2100 100.3 64 20 146/72 97 Room Air 12/16 1900 98.6 72 20 150/70 96 Room Air on exam; aox3, nad. cv; s1,s2, rrr resp; clear abd; soft, nt, bs+ ext; + immbolizer and jayden wrap on right le Laboratory Tests 12/17 0821 Chemistry Sodium (137 - 145 mmol/L) 138 Potassium (3.5 - 5.1 mmol/L) 4.4 Chloride (98 - 107 mmol/L) 99 Carbon Dioxide (22 - 30 mmol/L) 28 Anion Gap (5 - 16) 10 BUN (9 - 20 mg/dL) 19 Creatinine (0.7 - 1.2 mg/dL) 0.9 Estimated GFR (>60 ml/min) > 60 BUN/Creatinine Ratio (7 - 25 %) 21.1 Hematology CBC w Diff NO MAN DIFF REQ WBC (4.8 - 10.8 /CUMM) 8.3 RBC (4.70 - 6.10 /CUMM) 4.50 L Hgb (14.0 - 18.0 G/DL) 11.4 L Hct (42 - 52 %) 35.3 L MCV (80.0 - 94.0 FL) 78.4 L MCH (27.0 - 31.0 PG) 25.3 L MCHC (33.0 - 37.0 G/DL) 32.3 L RDW (11.5 - 14.5 %) 14.2 Plt Count (130 - 400 /CUMM) 329 MPV (7.4 - 10.4 FL) 8.8 Gran % (42.2 - 75.2 %) 68.5 Lymphocytes % (20.5 - 51.1 %) 16.1 L Monocytes % (1.7 - 9.3 %) 13.1 H Eosinophils % (0 - 5 %) 1.8 Basophils % (0.0 - 2.0 %) 0.5 Absolute Granulocytes (1.4 - 6.5 /CUMM) 5.7 Absolute Lymphocytes (1.2 - 3.4 /CUMM) 1.3 Absolute Monocytes (0.10 - 0.60 /CUMM) 1.1 H Absolute Eosinophils (0.0 - 0.7 /CUMM) 0.1 Absolute Basophils (0.0 - 0.2 /CUMM) 0 Assessment and recommendations: 62-year-old male with no significant past history who was admitted under orthopedic service for right knee septic arthritis needing washout. S/P arthroscopic washout right knee. POD #1 today. Synovial fluid grwoing GPC. Patient started on Cefazolin per ID. Please follow further ID recommendations for Abx. BP stable, Medical issues stable. Will sign off. Please call with questions.
--- NOTE | 2017-12-17 08:19 | PN- Orthopedic ---
Subjective Subjective: No acute overnight events reported. Pain adequately controlled. Has been afebrile, notes a mild headache. Denies chest pain, noted the need to "take deep breaths" but states that he has felt this in the past and has been able to catch his breath adequately. Denies nausea and vomitting. Has been voiding. Has had difficulty in the past initiating void, is requesting to take saw palmetto while in house, but did acknowledge less difficulty this am. Has been able to ambulate, wearing knee immobilzer, tolerating ankle pumps and leg movement. Objective Vital Signs and I&Os Vital Signs Date Time Temp Pulse Resp B/P B/P Pulse O2 O2 Flow FiO2 Mean Ox Delivery Rate 12/17 0745 98.3 65 20 120/72 95 Room Air 12/17 0344 98.5 54 20 122/72 94 Room Air 12/17 0330 98.5 54 20 122/72 94 Room Air 12/16 2331 99.1 61 20 126/64 96 Room Air 12/16 2324 99.1 12/16 2225 100.3 12/16 2100 100.3 64 20 146/72 97 Room Air 12/16 1900 98.6 72 20 150/70 96 Room Air 12/16 1241 98.4 69 16 136/69 100 Room Air 12/16 1031 98.1 67 16 129/60 99 Room Air Intake & Output 12/17 1600 12/17 0800 12/17 0000 12/16 1600 12/16 0800 12/16 0000 Intake Total 900 425 0 Output Total 1180 280 0 Balance -280 145 0 Intake, IV 600 225 Intake, Oral 300 200 0 Output, 30 80 Drainage Output, Urine 1150 200 0 Patient 215 lb 215 lb Weight Weight Reported by Patient Reported by Patient Measurement Method Physical Exam: General: Alert and oriented x3, no acute distress Cardiac: RRR, s1s2 Pulm: C T A bilaterally ABD: Nontender, non-distended Extremties: Moves all extremities, neurovascular status in tact. NADER in place, holding suction, sanguinous drainage noted. Dressing dry and intact, left calf soft, right calf with swelling, known bakers cyst, negative ultrasound yesterday for dvt. Assessment/Plan Assessment/Plan This is a 62 year old male, POD 1, s/p arthroscopic I&D for septic joint, cultures sent, staph aureus infection sensitive to cephalosporins. Has been on ancef, tolerating despite pcn allergy. -PICC line today, consent obtained, Scarlett to see this am -DC iv fluids -Monitor urine output/flow. Will consider urology consult or flomax if difficulty voiding -Follow up am labs -OOB, WBAT, Knee immobilzer for comfort -Continue NADER drain through the weekend per Dr. Power, there is a chance he will be DC'd with drain in place -Diet as tolerated -Hep sub q for dvt ppx, alps for mechanical prophylaxis Will discuss poc with Dr. Power Core Measures Venous Thromboembolism VTE Risk Factors Surgery No Mechanical VTE Prophylaxis d/t N/A MechProphylax Ordered No VTE Pharm Prophylaxis d/t NA PharmProphylax ordered
[2017-12-17 09:34] LABS: ABSOLUTE BASOPHIL COUNT 0 /CUMM (0.0-0.2); ABSOLUTE EOSINOPHIL COUNT 0.1 /CUMM (0.0-0.7); ABSOLUTE GRANULOCYTE CT 5.7 /CUMM (1.4-6.5); ABSOLUTE LYMPH COUNT 1.3 /CUMM (1.2-3.4); ABSOLUTE MONOCYTE COUNT 1.1 /CUMM (0.10-0.60); BASOPHIL % 0.5 % (0.0-2.0); EOSINOPHIL % 1.8 % (0-5); GRANULOCYTE % 68.5 % (42.2-75.2); HEMATOCRIT 35.3 % (42-52); MEAN CORPUSCULAR HGB 25.3 PG (27.0-31.0); MEAN CORPUSCULAR HGB CONC 32.3 G/DL (33.0-37.0); MEAN CORPUSCULAR VOLUME 78.4 FL (80.0-94.0); MEAN PLATELET VOLUME 8.8 FL (7.4-10.4); PLATELET COUNT 329 /CUMM (130-400); RBC DISTRIBUTION WIDTH 14.2 % (11.5-14.5); WHITE BLOOD CELL COUNT 8.3 /CUMM (4.8-10.8)
--- NOTE | 2017-12-17 13:01 | RADIOLOGY REPORT ---
EXAMINATION: CHEST 1 VIEW CLINICAL INFORMATION: PICC line placement. COMPARISON: 12/16/2017. TECHNIQUE: An AP view of the chest is provided. FINDINGS: A right PICC line has been placed. The tip overlies the distal SVC. The cardiac silhouette is not enlarged. The mediastinal and hilar contours are unremarkable. There are neither pleural effusions nor pneumothoraces. There are no consolidations. The osseous structures are unremarkable. IMPRESSION: Right PICC line in place. The tip overlies the distal SVC. No evidence for acute disease.
--- NOTE | 2017-12-17 13:48 | PN- Infect Dx ---
Subjective Subjective: MAXIMUM TEMPERATURE 100.3. He complains of pain in the right knee. Objective Last 24 Hrs of Vital Signs/I&O Vital Signs Date Time Temp Pulse Resp B/P B/P Pulse O2 O2 Flow FiO2 Mean Ox Delivery Rate 12/17 0745 98.3 65 20 120/72 95 Room Air 12/17 0344 98.5 54 20 122/72 94 Room Air 12/17 0330 98.5 54 20 122/72 94 Room Air 12/16 2331 99.1 61 20 126/64 96 Room Air 12/16 2324 99.1 12/16 2225 100.3 12/16 2100 100.3 64 20 146/72 97 Room Air 12/16 1900 98.6 72 20 150/70 96 Room Air Intake & Output 12/17 1600 12/17 0800 12/17 0000 Intake Total 900 425 Output Total 1180 280 Balance -280 145 Intake, IV 600 225 Intake, Oral 300 200 Output, 30 80 Drainage Output, Urine 1150 200 Patient 215 lb Weight Weight Reported by Patient Measurement Method Physical Exam Other Physical Findings: He appears mildly uncomfortable but in no acute distress Lungs are clear Heart regular rhythm with no murmur Extremities right knee dressing intact; drain in place; PICC in place in the right upper extremity Results Last 24 Hours of Lab Results: Laboratory Tests 12/17 0821 Chemistry Sodium (137 - 145 mmol/L) 138 Potassium (3.5 - 5.1 mmol/L) 4.4 Chloride (98 - 107 mmol/L) 99 Carbon Dioxide (22 - 30 mmol/L) 28 Anion Gap (5 - 16) 10 BUN (9 - 20 mg/dL) 19 Creatinine (0.7 - 1.2 mg/dL) 0.9 Estimated GFR (>60 ml/min) > 60 BUN/Creatinine Ratio (7 - 25 %) 21.1 Hematology CBC w Diff NO MAN DIFF REQ WBC (4.8 - 10.8 /CUMM) 8.3 RBC (4.70 - 6.10 /CUMM) 4.50 L Hgb (14.0 - 18.0 G/DL) 11.4 L Hct (42 - 52 %) 35.3 L MCV (80.0 - 94.0 FL) 78.4 L MCH (27.0 - 31.0 PG) 25.3 L MCHC (33.0 - 37.0 G/DL) 32.3 L RDW (11.5 - 14.5 %) 14.2 Plt Count (130 - 400 /CUMM) 329 MPV (7.4 - 10.4 FL) 8.8 Gran % (42.2 - 75.2 %) 68.5 Lymphocytes % (20.5 - 51.1 %) 16.1 L Monocytes % (1.7 - 9.3 %) 13.1 H Eosinophils % (0 - 5 %) 1.8 Basophils % (0.0 - 2.0 %) 0.5 Absolute Granulocytes (1.4 - 6.5 /CUMM) 5.7 Absolute Lymphocytes (1.2 - 3.4 /CUMM) 1.3 Absolute Monocytes (0.10 - 0.60 /CUMM) 1.1 H Absolute Eosinophils (0.0 - 0.7 /CUMM) 0.1 Absolute Basophils (0.0 - 0.2 /CUMM) 0 Last 24 Hours of Brad Results: OR culture December 16 right synovial fluid positive for scant growth of gram- positive cocci Recent Imaging Studies: Chest x-ray December 17 negative Assessment/Plan ID Impression: Stable status post arthroscopic drainage of the right knee yesterday for a septic arthritis secondary to MSSA. He had a low-grade fever last evening postop but has been afebrile since and his white blood cell count is now normal on Cefazolin. Recommendations for duration of therapy vary from 2-4 weeks of IV antibiotics and, given the isolation of Staph aureus, feel that a 4 week course may be prudent. Suggestion: 1. Follow-up final OR culture 2. Continue Cefazolin to plan on a 4 week course of treatment
[2017-12-18 07:27] VITALS: BP 110/70
--- NOTE | 2017-12-18 09:40 | PN- Orthopedic ---
See Addendum Subjective Subjective: PATient states knee feeling better has been afebrile. is ambulating with PT Objective Vital Signs and I&Os Vital Signs Date Time Temp Pulse Resp B/P B/P Pulse O2 O2 Flow FiO2 Mean Ox Delivery Rate 12/18 0727 99.1 67 20 110/70 93 Room Air 12/17 2307 98.6 68 18 118/60 93 12/17 1502 98.0 63 22 128/88 100 12/17 1200 98.0 64 16 128/68 100 Room Air Intake & Output 12/18 1600 12/18 0800 12/18 0000 12/17 1600 12/17 0800 12/17 0000 Intake Total 957 682 5064 900 425 Output Total 287 844 5013 1180 280 Balance -10 -685 85 -280 145 Intake, IV 120 60 125 600 225 Intake, Oral 590 240 960 300 200 Number 2 0 Bowel Movements Output, 20 35 30 80 Drainage Output, Urine 642 547 1646 1150 200 Patient 215 lb Weight Weight Reported by Patient Measurement Method Physical Exam: dressing clean dry drain still in place per Dr. Power. patient states pain better. Assessment/Plan Assessment/Plan doing well s/p arthroscopic washout right knee picc line in on appropriate antibiotics Core Measures Venous Thromboembolism VTE Risk Factors Surgery No Mechanical VTE Prophylaxis d/t N/A MechProphylax Ordered No VTE Pharm Prophylaxis d/t NA PharmProphylax ordered Attending MD Review Statement Attending Statement Attending MD Statement: examined this patient
--- NOTE | 2017-12-18 14:13 | PN- Infect Dx ---
Subjective Subjective: Afebrile. He notes decreased pain in the right knee. Objective Last 24 Hrs of Vital Signs/I&O Vital Signs Date Time Temp Pulse Resp B/P B/P Pulse O2 O2 Flow FiO2 Mean Ox Delivery Rate 12/18 0727 99.1 67 20 110/70 93 Room Air 12/17 2307 98.6 68 18 118/60 93 12/17 1502 98.0 63 22 128/88 100 Intake & Output 12/18 1600 12/18 0800 12/18 0000 Intake Total 710 300 Output Total 720 985 Balance -10 -685 Intake, IV 120 60 Intake, Oral 590 240 Number 2 0 Bowel Movements Output, 20 35 Drainage Output, Urine 700 950 Physical Exam Other Physical Findings: He appears more comfortable in no acute distress Extremities right knee dressing in place; PICC in the right upper extremity with no inflammation at the site Results Last 24 Hours of Lab Results: No labs from today Last 24 Hours of Brad Results: OR culture December 16 labeled right knee synovial fluid positive for Staph aureus sensitive to Oxacillin Assessment/Plan ID Impression: Stable, status post arthroscopic drainage of the right knee 2 days ago for a septic arthritis secondary to MSSA, with temperatures and white blood cell count normal on Cefazolin. Recommendations for duration of therapy for a septic arthritis vary from 2-4 weeks of IV antibiotics and, given the isolation of Staph aureus, feel that a 4 week course may be prudent. Suggestion: 1. Continue Cefazolin to plan on a 4 week course of treatment
[2017-12-18 14:15] VITALS: BP 122/66
[2017-12-18 22:53] VITALS: BP 114/66
[2017-12-19 06:29] VITALS: BP 110/70
[2017-12-19 15:00] VITALS: BP 120/80
--- NOTE | 2017-12-19 18:15 | PN- Orthopedic ---
Subjective Subjective: Pt seen and examined by JENNIFER James Reported no complaints overnight Tolerating diet, denies nausea Pain well controlled with meds Objective Vital Signs and I&Os Vital Signs Date Time Temp Pulse Resp B/P B/P Pulse O2 O2 Flow FiO2 Mean Ox Delivery Rate 12/19 1500 98.5 65 18 120/80 97 12/19 0629 99.1 60 20 110/70 93 Room Air 12/18 2253 98.5 62 16 114/66 97 Room Air Intake & Output 12/19 1600 12/19 0800 12/19 0000 12/18 1600 12/18 0800 12/18 0000 Intake Total 960 180 900 710 300 Output Total 315 270 340 720 985 Balance 645 -90 560 -10 -685 Intake, IV 80 100 120 60 Intake, Oral 960 100 800 590 240 Number 1 0 2 0 Bowel Movements Output, 15 20 40 20 35 Drainage Output, Urine 300 250 300 700 950 Physical Exam: Examined by JENNIFER James Reported WNL Wound: looks good, dressing is clean and dry NADER 15cc/8 hr, 75cc/24 hr - serosang Assessment/Plan Assessment/Plan 62yo male s/p R Knee scope - septic knee, I and D pod 3 Continue NADER PICC placed for home abx sensitivities returned today dc planning - 4 weeks cefazolin likely dc home with services in next 24-48 hours Core Measures Venous Thromboembolism VTE Risk Factors Surgery No Mechanical VTE Prophylaxis d/t N/A MechProphylax Ordered No VTE Pharm Prophylaxis d/t NA PharmProphylax ordered
[2017-12-19 22:23] VITALS: BP 110/70
[2017-12-20 06:34] VITALS: BP 100/60
--- NOTE | 2017-12-20 08:16 | Surgical Discharge Summary ---
Visit Information Visit Dates Admission Date: 12/16/17 Discharge Date: 12/21/2017 History of Present Illness Chief Complaint: RIGHT KNEE PAIN AND SWELLING Medical History Neurological: NONE EENT: NONE Cardiovascular: NONE Respiratory: NONE Gastrointestinal: NONE Hepatic: NONE Renal: NONE Musculoskeletal: NONE, septic arthritis Psychiatric: NONE Endocrine: NONE Blood Disorders: NONE Cancer(s): NONE History of MRSA: No History of VRE: No History of CDIFF: No Isolation History: Standard Surgical History Pertinent Surgical History: none, N Psychosocial History Where Do You Live? Home Who Do You Live With? Family What is Your Primary Language? Citizen Of [place] ETOH Use: denies use Review of Systems: SEE H+P Hospital Course Course Attending Physician: Elvis Power MD Primary Care Physician: Kristian MCLEOD,Chase Louise [facility] Course: THIS IS A 62 Y/O MALE WHO PRESENTED TO THE ER WITH FEVERS, CHILLS AND A SWOLLEN RIGHT KNEE. AFTER WORK-UP HE WAS FOUND TO HAVE SEPTIC ARTHRITIS AND ON 12/16/2017 HE WAS TAKEN TO THE OR BY DR. POWER AND UNDERWENT DSA AND WASHOUT. CX SENT REVEALED MSSA SENSITIVE TO CEFZOLIN. HE WAS STABLIZED IN PACU AND TRANSFERRED TO THE FLOOR FOR POSTOPERATIVE CARE. WHILE ON THE FLOOR HIS POSTOP COURSE WAS UNCOMPLICATED. HE WAS SEEN BY PT FOR AMBULATION AND DID WELL. TODAY HE IS AFEBRILE AND VVS ON EXAM THE RIGHT KNEE, THE KNEE IS CDI WITHOUT ERYTHEMA, SLIGHT JOINT EFFUSION, MINIMAL DRAINAGE FROM NADER WHICH IS REMOVED TODAY WITHOUT INCIDENT. PIC LINE PLACED ON 12/17/[address] MCLEAN FOR 4 WEEKS ABX. PLAN -HE IS DISCAHRGED HOME IN STABLE CONDITION WITH ALL QUESTIONS ANSWERED. HE IS GIVEN INSTRUCTIONS FOR FOLLOW-UP WITH HIS ORTHOPEDIST AND ATTENDING hE IS GIVEN INSTRUCTIONS FOR WOUND CARE- KEEP DRY AND COVERED AND LIGHT JAYDEN COMPRESSION OVER THE KNEE. HE SHOULD SLEEP WITH THE KNEE IMMOBILZER ON AND DURING THE DAY CAN REMOVE IT. FOLLOW-UP APPOINTS WITH DR POWER- KOMAL THIS WEEK AND DR MCLEAN IN 4 WEEKS. RECOMMENDATIONS WERE GIVEN TO CONTINUE THE ANCEF FOR 4 WEEKS Complications: NONE Allergies: Coded Allergies: Penicillins (UNKNOWN 12/16/17) Significant Procedures: PIC LINE Pertinent Lab Results: MSSA Disposition Summary Disposition Principal Diagnosis: RIGHT KNEE SEPTIC ARTHRITIS Additional Diagnosis: SAME Discharge Disposition: home health services Discharge Instructions General Discharge Information Code Status: Full Code Patient's Diet: REGULAR Patient's Activity: WBAT, KNEE IMMOBILIZER OFF DURING DAY WEAR AT HS Follow-Up Instructions/Appts: DR. POWER BY END OF THIS WEEK DR. MCLEAN 4 WEEKS Medications at Discharge Discharge Medications: Continue taking these medications: Multiple Vitamin (Multivitamins) 1 EACH TABLET 1 Tablet ORAL DAILY Comments: NOT GIVEN IN HOSPITAL Aspirin (Aspirin*) 81 MG TAB.CHEW 1 Tablet ORAL DAILY Comments: NOT GIVEN IN HOSPITAL Start taking the following new medications: Docusate Sodium (Docusate Sodium) 100 MG CAPSULE 100 Milligram ORAL TWICE DAILY as needed for CONSTIPATION Qty = 30 No Refills Instructions: stool softener, available over the counter Comments: Last Taken:12/21/17 Time:0930 AM Oxycodone HCl/Acetaminophen (Percocet 5-325 MG Tablet) 5 MG-325 MG TABLET 1-2 Tablet ORAL EVERY 4-6 HOURS NEEDED as needed for pain control Qty = 30 No Refills Instructions: tylenol alternatively Cefazolin Sodium in 0.9 % NaCl (Cefazolin 2 G/100 Ml-0.9% NaCl) 2 GRAM/100 ML PLAST..BAG 2 Gram INTRAVEN EVERY 8 HOURS Days = 28 No Refills Instructions: home health care agency to administer via PICC line Copies To: Kristian MCLEOD,Chase Louise; Mariaa MCLEOD,Magdi Reddy
[2017-12-20 08:28] LABS: ABSOLUTE BASOPHIL COUNT 0 /CUMM (0.0-0.2); ABSOLUTE EOSINOPHIL COUNT 0.3 /CUMM (0.0-0.7); ABSOLUTE GRANULOCYTE CT 5.9 /CUMM (1.4-6.5); ABSOLUTE LYMPH COUNT 1.6 /CUMM (1.2-3.4); BASOPHIL % 0.5 % (0.0-2.0); EOSINOPHIL % 2.8 % (0-5); GRANULOCYTE % 66.8 % (42.2-75.2); HEMATOCRIT 36.5 % (42-52); MEAN CORPUSCULAR HGB 25.1 PG (27.0-31.0); MEAN CORPUSCULAR HGB CONC 32.5 G/DL (33.0-37.0); MEAN CORPUSCULAR VOLUME 77.4 FL (80.0-94.0); MEAN PLATELET VOLUME 8.9 FL (7.4-10.4); PLATELET COUNT 402 /CUMM (130-400); RED BLOOD CELL CT 4.71 /CUMM (4.70-6.10); WHITE BLOOD CELL COUNT 8.9 /CUMM (4.8-10.8)
--- NOTE | 2017-12-20 08:36 | Patient Discharge Instructions ---
Discharge Instructions General Discharge Information You were seen/treated for: SEPTIC ARTHRITIS You had these procedures: PICC LINE PLACEMENT AND DSA Watch for these problems: FEVERS, EXCESSIVE DRAINAGE, REDDNESS TO THE WOUND, CALF PAIN Call Surgeon to remove: Stitches Do not soak the wound: No Daily wet to dry dressings: No No bath, but you may shower: Yes Other wound care: CHANGE DRESSING DAILY WITH BANDAIDS (WATER PROOF IF POSSIBLE) Diet Continue normal diet: Yes (REG) Recommended Diet: Regular Activity Full Activity/No Limits: Yes Activity Self Limited: Yes Activity Limited to: Weight bear as tolerated Other activity limits: CAREFUL ON STRAIRS, TAKE SLOW KNEE IMMOBLIZER NEEDED FOR COMFORT ONLY. WORK ON KNEE RANGE OF MOTION TO TOLERANCE. Acute Coronary Syndrome Inclusion Criteria At DC or during hospital stay patient has or had the following: ACS DIAGNOSIS No Discharge Core Measures Meds if any: Prescribed or Continued at Discharge Meds if any: NOT Prescribed or Continued at Discharge Congestive Heart Failure Inclusion Criteria At DC or during hospital stay patient has or had the following: CHF DIAGNOSIS No Discharge Core Measures Meds if any: Prescribed or Continued at Discharge Meds if any: NOT Prescribed or Continued at Discharge Cerebrovascular accident Inclusion Criteria At DC or during hospital stay patient has or had the following: CVA/TIA Diagnosis No Discharge Core Measures Meds if any: Prescribed or Continued at Discharge Meds if any: NOT Prescribed or Continued at Discharge Venous thromboembolism Inclusion Criteria VTE Diagnosis No VTE Type NONE VTE Confirmed by (Test) NONE Discharge Core Measures - Per Current guidelines, there needs to be overlap - treatment for the first 5 days of Warfarin therapy. - If discharged on Warfarin prior to 5 days of - overlap therapy, the patient will need to be - assessed for post discharge needs including - *Post discharge parental anticoagulation - *Warfarin and/or parental anticoagulation education - *Follow up date to check INR post discharge At least 5 days overlap therapy as Inpatient No Meds if any: Prescribed or Continued at Discharge Warfarin No Note: Overlap Therapy is Warfarin and Anticoagulant Meds if any: NOT Prescribed or Continued at Discharge
[2017-12-20] MEDS ORDERED: DOCUSATE SODIU100 M3 PO (09:00)
[2017-12-20] MEDS ORDERED: PERCOCET 5-3251 EACH PO (09:00)
[2017-12-20] MEDS ORDERED: CEFAZOLIN2 GM/100 M IV (09:00)
--- NOTE | 2017-12-20 12:54 | PN- Infect Dx ---
Subjective Subjective: Afebrile. He notes continued improvement in his right knee pain. Objective Last 24 Hrs of Vital Signs/I&O Vital Signs Date Time Temp Pulse Resp B/P B/P Pulse O2 O2 Flow FiO2 Mean Ox Delivery Rate 12/20 0634 99.7 61 18 100/60 94 Room Air 12/19 2223 98.9 58 18 110/70 93 Room Air 12/19 1500 98.5 65 18 120/80 97 Intake & Output 12/20 1600 12/20 0800 12/20 0000 Intake Total 500 380 580 Output Total 1010 15 Balance 500 -630 565 Intake, IV 100 100 Intake, Oral 500 280 480 Output, 10 15 Drainage Output, Urine 1000 Physical Exam Other Physical Findings: He appears comfortable in no acute distress Extremities right knee dressing intact; PICC in the right upper extremity with no inflammation at the site Results Last 24 Hours of Lab Results: Laboratory Tests 12/20 0510 Hematology CBC w Diff NO MAN DIFF REQ WBC (4.8 - 10.8 /CUMM) 8.9 RBC (4.70 - 6.10 /CUMM) 4.71 Hgb (14.0 - 18.0 G/DL) 11.8 L Hct (42 - 52 %) 36.5 L MCV (80.0 - 94.0 FL) 77.4 L MCH (27.0 - 31.0 PG) 25.1 L MCHC (33.0 - 37.0 G/DL) 32.5 L RDW (11.5 - 14.5 %) 14.0 Plt Count (130 - 400 /CUMM) 402 H MPV (7.4 - 10.4 FL) 8.9 Gran % (42.2 - 75.2 %) 66.8 Lymphocytes % (20.5 - 51.1 %) 18.1 L Monocytes % (1.7 - 9.3 %) 11.8 H Eosinophils % (0 - 5 %) 2.8 Basophils % (0.0 - 2.0 %) 0.5 Absolute Granulocytes (1.4 - 6.5 /CUMM) 5.9 Absolute Lymphocytes (1.2 - 3.4 /CUMM) 1.6 Absolute Monocytes (0.10 - 0.60 /CUMM) 1.0 H Absolute Eosinophils (0.0 - 0.7 /CUMM) 0.3 Absolute Basophils (0.0 - 0.2 /CUMM) 0 Last 24 Hours of Brad Results: OR culture December 16 labeled right synovial fluid positive for Staph aureus sensitive to Oxacillin Assessment/Plan ID Impression: Stable, status post arthroscopic drainage of the right knee 4 days ago for a septic arthritis secondary to MSSA, with temperatures and white blood cell count remaining normal on Cefazolin. Suggestion: 1. Continue Cefazolin to complete a 4 week course of treatment (until January 13)
[2017-12-20 14:30] VITALS: BP 120/70
[2017-12-20 22:32] VITALS: BP 124/60
[2017-12-21 05:51] VITALS: BP 120/70
--- NOTE | 2017-12-21 11:39 | PN- Orthopedic ---
Subjective Subjective: minimal pain, no systemic constitutional sympotms. Objective Vital Signs and I&Os Vital Signs Date Time Temp Pulse Resp B/P B/P Pulse O2 O2 Flow FiO2 Mean Ox Delivery Rate 12/21 0551 99.6 63 20 120/70 95 Room Air 12/20 2232 98.2 68 20 124/60 97 Room Air 12/20 1430 97.9 74 18 120/70 95 Intake & Output 12/21 1600 12/21 0800 12/21 0000 12/20 1600 12/20 0800 12/20 0000 Intake Total 874 171 6809 380 580 Output Total 700 059 579 7799 15 Balance 200 -300 1000 -630 565 Intake, IV 50 50 100 100 100 Intake, Oral 037 378 7962 280 480 Output, 10 15 Drainage Output, Urine 700 757 257 6459 Patient 215 lb Weight Physical Exam: wdwn aox3 nad no resp distress comfortable. knee- calm, no erythema, inicsion sits dci, minimal serous staining at portal site. bob applied lower leg. ROM 0-60 w pain on end range of flextion, minimal effusion, no warmth calf supple, non tender, nvi Results Last 48 Hours of Labs: Laboratory Tests 12/20 0510 Hematology CBC w Diff NO MAN DIFF REQ WBC (4.8 - 10.8 /CUMM) 8.9 RBC (4.70 - 6.10 /CUMM) 4.71 Hgb (14.0 - 18.0 G/DL) 11.8 L Hct (42 - 52 %) 36.5 L MCV (80.0 - 94.0 FL) 77.4 L MCH (27.0 - 31.0 PG) 25.1 L MCHC (33.0 - 37.0 G/DL) 32.5 L RDW (11.5 - 14.5 %) 14.0 Plt Count (130 - 400 /CUMM) 402 H MPV (7.4 - 10.4 FL) 8.9 Gran % (42.2 - 75.2 %) 66.8 Lymphocytes % (20.5 - 51.1 %) 18.1 L Monocytes % (1.7 - 9.3 %) 11.8 H Eosinophils % (0 - 5 %) 2.8 Basophils % (0.0 - 2.0 %) 0.5 Absolute Granulocytes (1.4 - 6.5 /CUMM) 5.9 Absolute Lymphocytes (1.2 - 3.4 /CUMM) 1.6 Absolute Monocytes (0.10 - 0.60 /CUMM) 1.0 H Absolute Eosinophils (0.0 - 0.7 /CUMM) 0.3 Absolute Basophils (0.0 - 0.2 /CUMM) 0 Assessment/Plan Assessment/Plan 62yo male s/p R Knee scope - septic knee, I and D pod 5 Khurram removed yesterday PICC in place for home abx to start at 4pm today dc planning - 4 weeks cefazolin dc home with services for IV abx. follow up on wednesday with Dr Power pain meds as needed. knee immobilzer for comfort only work on knee ROM Core Measures Venous Thromboembolism VTE Risk Factors Surgery No Mechanical VTE Prophylaxis d/t N/A MechProphylax Ordered No VTE Pharm Prophylaxis d/t NA PharmProphylax ordered
== END 2017-12-21 12:47 | disposition home health service (06) | DRG 550 ==
LOC: ERH 07:44 → ERHI 11:48 → 2NA 11:48 → PACUH 11:48 → 2NA 12:53 → PACUH 15:02 → ENRESERV 15:05 → 2NA 16:52 → ENPENDDIS 12-21 12:01 → ENTRNSPT 12-21 12:27 → EDTRNSPTSTS 12-21 12:41 → EDTRNSPT 12-21 12:41 → CMPTRNSPT 12-21 12:44 → 2NA 12-21 12:47
PROVIDERS: Emergency Medicine; Nurse Practitioner; Physician Assistant Surgical
PROC: 0S9C30Z Drainage of Right Knee Joint with Drainage Device, Percutaneous Approach (ICD-10-PCS; principal; 2017-12-16)
DX: M00.9 Pyogenic arthritis, unspecified (principal); B95.61 Methicillin susceptible Staphylococcus aureus infection as the cause of diseases classified elsewhere; E11.9 Type 2 diabetes mellitus without complications; E03.9 Hypothyroidism, unspecified; E78.5 Hyperlipidemia, unspecified; I10 Essential (primary) hypertension; M16.11 Unilateral primary osteoarthritis, right hip; Z79.82 Long term (current) use of aspirin; Z88.0 Allergy status to penicillin; M10.9 Gout, unspecified; K21.9 Gastro-esophageal reflux disease without esophagitis; M19.90 Unspecified osteoarthritis, unspecified site; Z87.442 Personal history of urinary calculi
CPT/HCPCS: 2NASP; 87070; 87075; 87184; 36592; 71045; 71046; 82436; 87040; 87147; 93005; 93010; 96374; 97116-GO; 97161-GP; 97530-GO; C1769; J0131; J0690; J1644; J2550; J7042